=== PATIENT | male | born 1995 | race Caucasian/White ===

== ENCOUNTER 2025-07-10 04:11 | Observation (INO) | payer BC ==
[2025-07-10] MEDS ORDERED: Hydrocortisone Sod Succ/PF 100 mg/2 ml Vial ONE (04:25)
[2025-07-10 04:33] LABS: #Basophils 0.06 10x3/uL (0.0-0.2); #Eosinophils 0.08 10x3/uL (0.0-0.5); #Monocytes 0.47 10x3/uL (0.0-1.1); #Neutrophils 4.09 10x3/uL (1.5-8.4); %Basophils 0.9 % (0.0-2.0); %Eosinophils 1.3 % (0.0-6.0); %Lymphocytes 26.1 % (18.0-47.0); %Monocytes 7.3 % (0.0-10.0); %Neutrophils 63.9 % (40.0-75.0); Hematocrit 31.8 % (38.8-50.0); Hemoglobin 11.5 g/dL (13.5-17.5); Mean Corpuscular Hemoglobin 31.1 pg (27.0-33.0); Mean Corpuscular Volume 85.9 fL (81.2-95.1); Platelet Count 143 10x3/uL (150-450); Red Blood Cell (RBC) Count 3.70 10x6/uL (4.32-5.72); White Blood Cell (WBC) Count 6.40 10x3/uL (3.5-10.5)
[2025-07-10 04:53] LABS: ALT (SGPT) 46 U/L (Less than 45); AST (SGOT) 45 U/L (11-34); Albumin 4.1 g/dL (3.1-4.5); Alkaline Phosphatase 58 U/L (40-110); Anion Gap 11 mmol/L (10-20); BUN (Urea Nitrogen) 14 mg/dL (8.9-20.6); Bilirubin, Total 1.9 mg/dL (0.3-1.2); Calc. Creatinine Clearance 0 mL/min (70-130); Calcium 8.7 mg/dL (7.8-10.44); Carbon Dioxide 21 mmol/L (22-29); Chloride 107 mmol/L (98-107); Globulin 2.6 g/dL (2.4-3.5); Glucose 100 mg/dL (70-105); Lipase 34 U/L (8-78); Potassium 4.2 mmol/L (3.5-5.1); Sodium 135 mmol/L (136-145)
[2025-07-10] MEDS ORDERED: Ondansetron PF 4 MG/2 ML Vial IVP PRN (05:24)
[2025-07-10] MEDS ORDERED: Senokot S 8.6-50 MG TAB PO PRN (05:24)
[2025-07-10] MEDS ORDERED: Acetaminophen 325 MG TAB PO PRN (05:24)
[2025-07-10] MEDS ORDERED: Melatonin 3 MG TAB PO PRN (05:24)
[2025-07-10] MEDS ORDERED: Guaifenesin DM 100-10/5 ML UDCUP PO PRN (05:24)
[2025-07-10] MEDS ORDERED: Calcium Carbonate 500 MG ChewTAB PO PRN (05:24)
[2025-07-10] MEDS: Levothyroxine 150 MCG TAB PO SCH (06:30)
[2025-07-10 07:01] LABS: Mononucleosis NEGATIVE (NEGATIVE)
[2025-07-10 07:02] LABS: MONO NEGATIVE CONTROL ZONE White (Negative) (White); MONO POSITIVE CONTROL Pink Line (Positive) (PINK/RED)
[2025-07-10 07:29] LABS: Free T4 (Free Thyroxine) 0.71 ng/dL (0.70-1.48)
[2025-07-10 07:36] LABS: Hep B Surf Ag Non-Reactive S/CO (NonReactive)
[2025-07-10 08:31] VITALS: BMI 32.0
[2025-07-10] MEDS: Famotidine/PF 20 mg/2ml Vial SLOW IVP SCH (10:38)
[2025-07-10] MEDS: Hydrocortisone Sod Succ/PF 100 mg/2 ml Vial IVP SCH (10:38)
[2025-07-10 12:54] LABS: Hep A IgM AB NONREACTIVE (NonReactive); Hep A IgM S/CO 0.23 S/CO (0-0.79); Hep B Core IgM Index 0.12 S/CO (0-0.79); Hep C IgG Ab NONREACTIVE S/CO (NonReactive); Hep C Index 0.16 S/CO (0-0.79)
[2025-07-10] MEDS: FLU (Fluarix Triv) 25-26 (6MOS UP)/PF 45 MCG/0.5 ML Syringe IM ONE (17:39)
[2025-07-10] MEDS ORDERED: Ketorolac Tromethamine 30 MG (1 mL) VIAL IVP PRN (18:18)
[2025-07-10] MEDS: Ketorolac Tromethamine 30 MG (1 mL) VIAL IVP SCH (18:38)
[2025-07-10 21:20] LABS: Campy jejuni + coli by PCR Negative (Negative); STEC Shiga Toxin 1+2 Negative (Negative); Salmonella spp. by PCR Negative (Negative); Shigella spp + EIEC by PCR Negative (Negative)
[2025-07-10] MEDS: Enoxaparin 40 MG (0.4 mL) SYRINGE SC SCH (21:28)
[2025-07-11 04:23] LABS: ALT (SGPT) 37 U/L (Less than 45); AST (SGOT) 32 U/L (11-34); Albumin 4.0 g/dL (3.1-4.5); Alkaline Phosphatase 49 U/L (40-110); Anion Gap 11 mmol/L (10-20); BUN (Urea Nitrogen) 14 mg/dL (8.9-20.6); Bilirubin, Total 1.2 mg/dL (0.3-1.2); CK (CPK) 160 U/L (30-200); Calc. Creatinine Clearance 190 mL/min (70-130); Calcium 8.8 mg/dL (7.8-10.44); Carbon Dioxide 20 mmol/L (22-29); Chloride 111 mmol/L (98-107); Globulin 2.7 g/dL (2.4-3.5); Glucose 149 mg/dL (70-105); Magnesium 1.6 mg/dL (1.6-2.6); Potassium 3.7 mmol/L (3.5-5.1); Sodium 138 mmol/L (136-145)
[2025-07-11 04:39] LABS: Free T4 (Free Thyroxine) 0.7 ng/dL (0.70-1.48)
[2025-07-11 05:00] LABS: Hematocrit 29.4 % (38.8-50.0); Hemoglobin 10.6 g/dL (13.5-17.5); MDiff Complete? YES; Mean Corpuscular Hemoglobin 31.1 pg (27.0-33.0); Mean Corpuscular Volume 86.2 fL (81.2-95.1); Platelet Adequacy Comment Appears Adequate; Platelet Count 149 10x3/uL (150-450); RBC Morphology Within Normal Limits; Red Blood Cell (RBC) Count 3.41 10x6/uL (4.32-5.72); White Blood Cell (WBC) Count 8.08 10x3/uL (3.5-10.5)
[2025-07-11 09:39] VITALS: BP 101/60; TEMP 98.3
[2025-07-12] MEDS ORDERED: LEVOTHYROXINE SODIUM 175 MCG PO SCH (06:00)
== END 2025-07-11 11:12 | disposition home or self-care (01) ==
LOC: EEVIPCON 04:11 → CSHERS 04:11 → CSHERHOLD 05:24 → EEVIPCON 05:24 → CSHICU 08:13
PROVIDERS: ADMIT Student in an Organized Health Care Education/Training Program; ATTEND Family Medicine
DX: K52.9 Noninfective gastroenteritis and colitis, unspecified (principal); E27.40 Unspecified adrenocortical insufficiency; E87.6 Hypokalemia; E23.0 Hypopituitarism; E27.2 Addisonian crisis; E87.1 Hypo-osmolality and hyponatremia; N17.9 Acute kidney failure, unspecified; R74.01 Elevation of levels of liver transaminase levels
CPT/HCPCS: 36415; 36416; 80053; 80074; 82550; 83605; 83630; 83690; 83735; 84439; 84443; 84481; 85025; 86308; 87324; 87449; 87505; 87798; 96372; 96374; 96375; 96376; G0378; J1308; J1650; J1720; J1885; J7030